=== PATIENT | male | born 1990 | race Two or more races ===

== ENCOUNTER 2025-10-01 15:13 | Emergency (ER) | payer OTHER ==
[~2025-10-01] VITALS: Ht 157.5 cm; Wt 63.5 kg
[2025-10-01 15:36] VITALS: BP 150/90; O2SAT 100
[2025-10-01] MEDS ORDERED: ACID REDUCER20 M1 PO (15:37)
[2025-10-01] MEDS ORDERED: GRALISE600 MG (15:37)
[2025-10-01] MEDS ORDERED: HUMALOG100 UNIT/2 SQ (15:37)
[2025-10-01] MEDS ORDERED: DEXTROSE 5 %-0.45 % SOD CHLORD 500 ML IV ONE (16:00)
[2025-10-01] MEDS ORDERED: KETOROLAC TROMETHAMINE 60 MG VIAL IM ONE (16:00)
[2025-10-01] MEDS ORDERED: ACETAMINOPHEN 500 MG GEL..CAP PO ONE (16:00)
[2025-10-01] MEDS ORDERED: ORPHENADRINE CITRATE 30 MG/ML AMPUL IM ONE (16:00)
[2025-10-01 16:59] LABS: BASO % 0.3 % (0.1-1.2); EOS # 0.09 (0.04-0.54); EOS % 0.6 % (0.7-7.0); LYMPH # 1.57 (1.18-3.74); LYMPH % 10.7 % (19.3-53.1); MEAN PLATELET VOLUME 9.50 fl (9.4-12.4); MONO # 1.17 (0.24-0.82); MONO % 8.0 % (4.7-12.5); NEUT # 11.74 (1.56-6.13); NEUT % 80.2 % (34.0-71.1); RED CELL DISTRIBUTION WIDTH 14.8 % (11.6-14.4)
[2025-10-01 18:02] LABS: ALT/SGPT 18.0 U/L (12-78); AST/SGOT 11.0 U/L (15-37); BILIRUBIN TOTAL 0.25 mg/dL (0.3-1.2); BUN CREA RATIO 12.0 (7.0-25.0); CREATININE SERUM 1.55 mg/dL (0.70-1.30); GFR 52.22; GLOBULINA 3.7 G/DL (2.4-3.5); OSMOLALITY SERUM 287.0 MOSM/KG (275-295)
[2025-10-01 18:15] LABS: GLUCOSE FASTING 204.0 mg/dL (65-100)
== END 2025-10-01 21:36 | disposition home or self-care (01) ==
LOC: ER 15:13
PROVIDERS: General Practice
DX: T14.90XA Injury, unspecified, initial encounter (principal); V49.88XA Car occupant (driver) (passenger) injured in other specified transport accidents, initial encounter; Y93.89 Activity, other specified; Y92.89 Other specified places as the place of occurrence of the external cause; Y99.8 Other external cause status; E11.9 Type 2 diabetes mellitus without complications; Z79.4 Long term (current) use of insulin